=== PATIENT | female | born 1980 | race Caucasian/White ===

== ENCOUNTER 2016-12-14 13:49 | Emergency (ER) | payer BC, OTHER ==
[2016-12-14 13:55] VITALS: BP 160/68; BMI 54.0
--- NOTE | 2016-12-14 14:10 | DR.GENAD ---
HPI - PCP Primary Care Physician: brian - Complaint/Symptoms Chief Complaint Doctors Comments: Patient admits to generalized abdominal pain since this morning. Admits to nausea, chills and no fever. Chief Complaint:: pt says " I have had chills and n/v since this moring" - Source History Provided: Patient - Mode of Arrival Mode of Arrival: Ambulatory - Timing Onset of Chief Complaint: 12/14/16 PMH - PMH Past Medical History: No Past Surgical History: Yes Surgical History: , Cholecystectomy - Family History History of Family Medical Conditions: Yes Family Medical History: Hypertension - Social History Does patient currently use any type of tobacco product: No Have you used tobacco products in the last 12 months: No Type of Tobacco Use: None Does any household member use tobacco: No Alcohol Use: None Do you use any recreational Drugs:: No Lives With: Family Lives Where: Home - infectious screening In the last 2 months have you had wt loss of >10#?: NO Have you had fever, night sweats or hemotysis?: No Have you traveled outside the country in the last 6 months?: No Isolation: Standard ROS - Review of Systems Constitutional: Chills Eyes: No Symptoms Reported ENTM: No Symptoms Reported Respiratoy: No Symptoms Reported Cardiovascular: No Symptoms Reported Gastrointestinal/Abdominal: Abdominal Pain, Nausea Genitourinary: No Symptoms Reported Neurological: No Symptoms Reported Musculoskeletal: No Symptoms Reported Integumentary: No Symptoms Reported Hematologic/Lymphatic: No Symptoms Reported Endocrine: No Symptoms Reported Psychiatric: No Symptoms Reported All Other Systems: Reviewed and Negative PE - Vital Signs Vitals: Temperature 99 F Pulse Rate 106 Respiratory Rate 18 Blood Pressure [Right Arm] 119/66 Blood Pressure 160/68 O2 Sat by Pulse Oximetry 98 - General Limitations: No Limitations General Appearance: Alert, In No Apparent Distress - Head Head Exam: Normal Inspection, Atraumatic - Eyes Eye exam: Normal Appearance, PERRL, EOMI - ENT ENT Exam: Normal Exam External Ear Exam: Normal External Inspection TM/Canal Exam: Bilateral Normal Nose Exam: Normal Nose Exam Mouth Exam: Normal Inspection Throat Exam: Normal Inspection - Neck Neck Exam: Normal Inspection, Full ROM - Chest Chest Inspection: Normal Inspection, Symmetric Chest Wall Rise - Respiratory Respiratory Exam: Normal Lung Sounds Bilat Respiratory Exam: Bilateral Clear to Auscultation - Cardiovascular Cardiovascular Exam: Regular Rate, Normal Rhythm - Abdominal Exam Abdominal Exam: Normal Inspection, Tenderness (generalized), Hypoactive Bowel Sounds Abdominal Tenderness: Diffuse - Extremities Extremities Exam: Normal Inspection, Full ROM - Back Back Exam: Normal Inspection - Neurologic Neurological Exam: Alert, Oriented X3, CN II-XII Intact - Psychiatric Psychiatric Exam: Normal Affect - Skin Skin Exam: Warm, Dry, Intact ROR - Labs Reviewed Laboratory Results Reviewed?: Yes (H pylori positive) Result Diagrams: 12/14/16 14:21 12/14/16 14:21 Laboratory: WBC 10.6 X10^3/uL (3.6-10.0) H 12/14/16 14:21 RBC 4.79 X10^6/uL (3.5-5.4) 12/14/16 14:21 Hgb 13.3 g/dL (12.0-16.0) 12/14/16 14:21 Hct 40.3 % (36.0-47.0) 12/14/16 14:21 MCV 84.3 fL (80.0-100.0) 12/14/16 14:21 MCH 27.7 pg (27.0-34.0) 12/14/16 14:21 MCHC 32.9 g/dL (33.0-35.0) L 12/14/16 14:21 RDW 14.9 % (11.6-16.5) 12/14/16 14:21 Plt Count 166 X10^3/uL (150.0-450.0) 12/14/16 14:21 MPV 9.0 fL (7.4-11.0) 12/14/16 14:21 Neut % 86.6 % (42.0-75.0) H 12/14/16 14:21 Lymph % 6.5 % (21.0-51.0) L 12/14/16 14:21 [place] % 5.9 % (0.0-13.0) 12/14/16 14:21 Eos % 0.7 % (0.9-2.9) L 12/14/16 14:21 Baso % 0.3 % (0.2-1.0) 12/14/16 14:21 Neut # 9.2 x10^3/uL (2.2-4.8) H 12/14/16 14:21 Lymph # 0.7 X10^3/uL (1.3-2.9) L 12/14/16 14:21 [place] # 0.6 x10^3/uL (0.3-0.8) 12/14/16 14:21 Eos # 0.1 x10^3/uL (0.0-0.2) 12/14/16 14:21 Baso # 0.0 X10^3/uL (0.0-0.1) 12/14/16 14:21 Absolute Nucleated RBC 0.0 /100WBC 12/14/16 14:21 Sodium 141 mmol/L (136-145) 12/14/16 14:21 Corrected Sodium 141 mmol/L (136-145) 12/14/16 14:21 Potassium 3.5 mmol/L (3.5-5.1) 12/14/16 14:21 Chloride 105 mmol/L (98-107) 12/14/16 14:21 Carbon Dioxide 26.8 mmol/L (21-32) 12/14/16 14:21 BUN 8 mg/dL (7-18) 12/14/16 14:21 Creatinine 0.78 mg/dL (0.55-1.02) 12/14/16 14:21 Est GFR (MDRD) Af Amer > 60 (>60) 12/14/16 14:21 Est GFR (MDRD) Non-Af > 60 (>60) 12/14/16 14:21 Glucose 114 mg/dL (65-99) H 12/14/16 14:21 Calcium 8.4 mg/dL (8.5-10.1) L 12/14/16 14:21 Corrected Calcium 9.2 mg/dL (8.5-10.1) 12/14/16 14:21 Total Bilirubin 0.60 mg/dL (0.2-1.0) 12/14/16 14:21 AST 15 Units/L (15-37) 12/14/16 14:21 ALT 23 Units/L (12-78) 12/14/16 14:21 Alkaline Phosphatase 73 Units/L (46-116) 12/14/16 14:21 C-Reactive Protein 52.50 mg/L (0-3.0) H 12/14/16 14:21 Total Protein 6.7 g/dL (6.4-8.2) 12/14/16 14:21 Albumin 3.0 g/dL (3.4-5.0) L 12/14/16 14:21 Globulin 3.7 g/dL (2.5-4.5) 12/14/16 14:21 Albumin/Globulin Ratio 0.8 Ratio (1.1-2.1) L 12/14/16 14:21 Amylase 30 Units/L (25-115) 12/14/16 14:21 Lipase 101 Units/L (73-393) 12/14/16 14:21 Specimen Type Clean catch urine 12/14/16 14:40 Urine Color Yellow (YELLOW) 12/14/16 14:40 Urine Appearance Hazy (CLEAR) 12/14/16 14:40 Urine pH 7.0 (5.0 - 8.0) 12/14/16 14:40 Ur Specific [place] 1.005 (1.000-1.030) 12/14/16 14:40 Urine Protein 1+ (NEGATIVE) 12/14/16 14:40 Urine Glucose (UA) Negative (NEGATIVE) 12/14/16 14:40 Urine Ketones Negative (NEGATIVE) 12/14/16 14:40 Urine Occult Blood Negative (NEGATIVE) 12/14/16 14:40 Urine Nitrite Negative (NEGATIVE) 12/14/16 14:40 Urine Bilirubin Negative (NEGATIVE) 12/14/16 14:40 Urine Urobilinogen Normal (NORMAL) 12/14/16 14:40 Ur Leukocyte Esterase 1+ (NEGATIVE) 12/14/16 14:40 Urine RBC 0-2 /HPF (NEGATIVE) 12/14/16 14:40 Urine WBC 0-2 /HPF (NEGATIVE) 12/14/16 14:40 Ur Squamous Epith Cells Few /HPF (NEGATIVE) 12/14/16 14:40 Urine Bacteria 1+ /HPF (NEGATIVE) 12/14/16 14:40 Ur Culture Indicated? No/not indicated 12/14/16 14:40 H. pylori IgG Antibody Positive (NEGATIVE) A 12/14/16 14:21 - Diagnosis Discharge Problem: Helicobacter pylori gastritis - Discharge Plan Condition: Stable - Follow ups/Referrals Follow ups/Referrals: Rio Bailey [Primary Care Provider] - 3 days - Instructions
[2016-12-14] MEDS ORDERED: MORPHINE SULFATE INJ 4 MG IVP ONE (14:13)
[2016-12-14] MEDS ORDERED: ZOFRAN INJ 4 MG VIAL IVP ONE (14:14)
[2016-12-14 14:27] LABS: BASOPHILS % (AUTO) 0.3 % (0.2-1.0); EOSINOPHILS # (AUTO) 0.1 x10^3/uL (0.0-0.2); EOSINOPHILS % (AUTO) 0.7 % (0.9-2.9); HEMATOCRIT 40.3 % (36.0-47.0); HEMOGLOBIN 13.3 g/dL (12.0-16.0); LYMPHOCYTES # (AUTO) 0.7 X10^3/uL (1.3-2.9); LYMPHOCYTES % (AUTO) 6.5 % (21.0-51.0); MEAN CORPUSCULAR HEMOGLOBIN 27.7 pg (27.0-34.0); MEAN CORPUSCULAR HGB CONC 32.9 g/dL (33.0-35.0); MEAN CORPUSCULAR VOLUME 84.3 fL (80.0-100.0); MONOCYTES # (AUTO) 0.6 x10^3/uL (0.3-0.8); MONOCYTES % (AUTO) 5.9 % (0.0-13.0); NEUTROPHILS # (AUTO) 9.2 x10^3/uL (2.2-4.8); NEUTROPHILS % (AUTO) 86.6 % (42.0-75.0); PLATELET COUNT 166 X10^3/uL (150.0-450.0); RED BLOOD COUNT 4.79 X10^6/uL (3.5-5.4); RED CELL DISTRIBUTION WIDTH 14.9 % (11.6-16.5); WHITE BLOOD COUNT 10.6 X10^3/uL (3.6-10.0)
[2016-12-14] MEDS ORDERED: ZOFRAN INJ 4 MG VIAL ONE (14:32)
[2016-12-14] MEDS ORDERED: MORPHINE SULFATE INJ 4 MG ONE (14:32)
[2016-12-14 14:44] LABS: ALANINE AMINOTRANSFERASE 23 Units/L (12-78); ALKALINE PHOSPHATASE 73 Units/L (46-116); AMYLASE 30 Units/L (25-115); ASPARTATE AMINO TRANSFERASE 15 Units/L (15-37); BLOOD UREA NITROGEN 8 mg/dL (7-18); CALCIUM 8.4 mg/dL (8.5-10.1); CARBON DIOXIDE 26.8 mmol/L (21-32); CHLORIDE 105 mmol/L (98-107); COR CA(FOR HYPOALB) 9.2 mg/dL (8.5-10.1); COR NA(FOR HYPERGLY) 141 mmol/L (136-145); CREATININE 0.78 mg/dL (0.55-1.02); GLUCOSE 114 mg/dL (65-99); LIPASE 101 Units/L (73-393); SODIUM 141 mmol/L (136-145); TOTAL PROTEIN 6.7 g/dL (6.4-8.2); eGFR BLACK RACES > 60 (>60); eGFR NON BLACK RACES > 60 (>60)
[2016-12-14 14:48] LABS: BILIRUBIN,URINE NEGATIVE (NEGATIVE); BLOOD/HEMOGLOBIN,URINE NEGATIVE (NEGATIVE); GLUCOSE, URINE NEGATIVE (NEGATIVE); KETONES,URINE NEGATIVE (NEGATIVE); LEUKOCYTE ESTERASE ,URINE 1+ (NEGATIVE); NITRITES,URINE NEGATIVE (NEGATIVE); PROTEIN,URINE 1+ (NEGATIVE); UROBILINOGEN,URINE NORMAL (NORMAL)
[2016-12-14 14:54] LABS: APPEARANCE,URINE HAZY (CLEAR); BACTERIA,URINE 1+ /HPF (NEGATIVE); COLOR,URINE YELLOW (YELLOW); RBC,URINE 0-2 /HPF (NEGATIVE); SQUAMOUS EPITHELIAL CELL,UR FEW /HPF (NEGATIVE)
== END 2016-12-14 16:03 | disposition home or self-care (01) ==
LOC: ER 13:57
DX: R11.2 Nausea with vomiting, unspecified (principal); B96.81 Helicobacter pylori [H. pylori] as the cause of diseases classified elsewhere
CPT/HCPCS: 36415; 80053; 81001; 82150; 83690; 85025; 86140; 86677; 96365; 96374; 96375; 99283; A4222; J2270; J2405

== ENCOUNTER 2018-01-12 10:33 | Inpatient (IN) ==
[2018-01-12] MEDS: NS 1000 ML 1,000 ML IV SCH ×2 (11:34→20:19)
[2018-01-12 11:50] LABS: BASOPHILS # (AUTO) 0.1 X10^3/uL (0.0-0.1); BASOPHILS % (AUTO) 0.8 % (0.2-1.0); EOSINOPHILS # (AUTO) 0.2 x10^3/uL (0.0-0.2); EOSINOPHILS % (AUTO) 2.1 % (0.9-2.9); HEMATOCRIT 38.2 % (36.0-47.0); HEMOGLOBIN 12.9 g/dL (12.0-16.0); LYMPHOCYTES # (AUTO) 1.6 X10^3/uL (1.3-2.9); LYMPHOCYTES % (AUTO) 17.4 % (21.0-51.0); MEAN CORPUSCULAR HEMOGLOBIN 28.9 pg (27.0-34.0); MEAN CORPUSCULAR HGB CONC 33.9 g/dL (33.0-35.0); MEAN CORPUSCULAR VOLUME 85.2 fL (80.0-100.0); MEAN PLATELET VOLUME 9.7 fL (7.4-11.0); MONOCYTES # (AUTO) 0.5 x10^3/uL (0.3-0.8); MONOCYTES % (AUTO) 5.6 % (0.0-13.0); NEUTROPHILS # (AUTO) 6.7 x10^3/uL (2.2-4.8); NEUTROPHILS % (AUTO) 74.1 % (42.0-75.0); PLATELET COUNT 214 X10^3/uL (150.0-450.0); RED BLOOD COUNT 4.49 X10^6/uL (3.5-5.4); RED CELL DISTRIBUTION WIDTH 14.8 % (11.6-16.5); WHITE BLOOD COUNT 9.1 X10^3/uL (3.6-10.0)
[2018-01-12 12:11] VITALS: BMI 50.7
[2018-01-12 12:37] LABS: BILIRUBIN,URINE NEGATIVE (NEGATIVE); BLOOD/HEMOGLOBIN,URINE 1+ (NEGATIVE); GLUCOSE, URINE NEGATIVE (NEGATIVE); KETONES,URINE 3+ (NEGATIVE); LEUKOCYTE ESTERASE ,URINE 2+ (NEGATIVE); NITRITES,URINE NEGATIVE (NEGATIVE); PH,URINE 6.5 (5.0 - 8.0); PROTEIN,URINE 1+ (NEGATIVE); UROBILINOGEN,URINE NORMAL (NORMAL)
[2018-01-12 12:37] LABS: ALANINE AMINOTRANSFERASE 54 Units/L (12-78); ALBUMIN 3.3 g/dL (3.4-5.0); ALKALINE PHOSPHATASE 79 Units/L (46-116); ASPARTATE AMINO TRANSFERASE 33 Units/L (15-37); BLOOD UREA NITROGEN 6 mg/dL (7-18); CALCIUM 8.9 mg/dL (8.5-10.1); CARBON DIOXIDE 23.8 mmol/L (21-32); CHLORIDE 103 mmol/L (98-107); COR CA(FOR HYPOALB) 9.5 mg/dL (8.5-10.1); CREATININE 0.74 mg/dL (0.55-1.02); SODIUM 139 mmol/L (136-145); TOTAL PROTEIN 7.4 g/dL (6.4-8.2); eGFR NON BLACK RACES > 60 (>60)
[2018-01-12 12:40] LABS: APPEARANCE,URINE HAZY (CLEAR); COLOR,URINE YELLOW (YELLOW)
[2018-01-12 12:43] LABS: BACTERIA,URINE NEGATIVE /HPF (NEGATIVE); RBC,URINE 0-2 /HPF (NONE SEEN); SQUAMOUS EPITHELIAL CELL,UR MANY /HPF (NEGATIVE)
[2018-01-12] MEDS: ZOFRAN INJ 4 MG VIAL IVP PRN (12:43)
[2018-01-12] MEDS: TORADOL 30 MG VIAL IVP SCH ×2 (12:43→17:50)
[2018-01-12] MEDS ORDERED: NS 100 ML IV 100 ML IV ONE (14:31)
--- NOTE | 2018-01-12 15:55 | CT ---
HISTORY: Headache Study: CT brain without contrast Comparison: None Technique: Multiple axial images of the brain were obtained from the skull base to the vertex without administra tion of IV contrast. Findings: No acute intraparenchymal hemorrhage or mass can be identified. No extra-axial fluid collections are seen. No alteration in the attenuation of the brain parenchyma can be identified to suggest acute o r subacute ischemic change. The ventricular system is symmetric and nondilated. If symptoms or clin ical concern persist recommend follow-up further evaluation. IMPRESSION: 1. No acute intracranial process can be identified. Reported By:
--- NOTE | 2018-01-12 17:21 | CT ---
CT OF THE ABDOMEN AND PELVIS WITH CONTRAST HISTORY: Nausea and vomiting Comparison: None Technique: Multiple axial images of the abdomen and pelvis were obtained from the lung bases to the pubic symphy sis follow the administration of IV contrast as well as oral contrast. Dose reduction techniques inc luding Automated Exposure Control (AEC) and adjustment of mA and kV were utlized. Findings: The heart is normal in size. There is no pericardial effusion. Lung bases are clear without focal con solidation, pleural effusion or pneumothorax. Liver and spleen are normal in size, enhancement characteristics and contour. No focal lesions. The p ortal vein is patent. No ductal dilitation. Gallbladder not seen. Recent gastric sleeve procedure. Th e pancreas is unremarkable. Adrenal glands are normal. Kidneys enhance symmetrically without hydronep hrosis or nephrolithiasis. No bowel obstruction or inflammation. No abnormal appearing mesenteric or retroperitoneal lymph node s. No free fluid or fluid collections. The bladder is normal in appearance. Uterus present. No free fluid or abnormal pelvic lymph nodes. No aggressive osseous lesions. IMPRESSION: 1. No source of patient's nausea or vomiting is identified on this examination. Reported By:
[2018-01-12] MEDS: SYNTHROID 75 mcg TAB PO SCH (20:19)
[2018-01-13] MEDS: TORADOL 30 MG VIAL IVP SCH ×4 (00:20→18:26)
[2018-01-13] MEDS: NS 1000 ML 1,000 ML IV SCH ×3 (00:20→15:51)
[2018-01-13 06:04] LABS: BASOPHILS # (AUTO) 0.1 X10^3/uL (0.0-0.1); BASOPHILS % (AUTO) 1.1 % (0.2-1.0); EOSINOPHILS # (AUTO) 0.3 x10^3/uL (0.0-0.2); EOSINOPHILS % (AUTO) 4.5 % (0.9-2.9); HEMATOCRIT 34.6 % (36.0-47.0); HEMOGLOBIN 11.9 g/dL (12.0-16.0); LYMPHOCYTES # (AUTO) 1.9 X10^3/uL (1.3-2.9); LYMPHOCYTES % (AUTO) 31.1 % (21.0-51.0); MEAN CORPUSCULAR HEMOGLOBIN 29.4 pg (27.0-34.0); MEAN CORPUSCULAR HGB CONC 34.3 g/dL (33.0-35.0); MEAN CORPUSCULAR VOLUME 85.8 fL (80.0-100.0); MEAN PLATELET VOLUME 9.8 fL (7.4-11.0); MONOCYTES # (AUTO) 0.5 x10^3/uL (0.3-0.8); NEUTROPHILS # (AUTO) 3.4 x10^3/uL (2.2-4.8); NEUTROPHILS % (AUTO) 55.3 % (42.0-75.0); PLATELET COUNT 161 X10^3/uL (150.0-450.0); RED BLOOD COUNT 4.04 X10^6/uL (3.5-5.4); RED CELL DISTRIBUTION WIDTH 15.1 % (11.6-16.5); WHITE BLOOD COUNT 6.2 X10^3/uL (3.6-10.0)
[2018-01-13 06:21] LABS: ALANINE AMINOTRANSFERASE 43 Units/L (12-78); ALBUMIN 2.7 g/dL (3.4-5.0); ALKALINE PHOSPHATASE 70 Units/L (46-116); ASPARTATE AMINO TRANSFERASE 27 Units/L (15-37); BLOOD UREA NITROGEN 5 mg/dL (7-18); CALCIUM 8.3 mg/dL (8.5-10.1); CARBON DIOXIDE 23.7 mmol/L (21-32); CHLORIDE 106 mmol/L (98-107); COR CA(FOR HYPOALB) 9.3 mg/dL (8.5-10.1); CREATININE 0.68 mg/dL (0.55-1.02); SODIUM 142 mmol/L (136-145); TOTAL PROTEIN 6.2 g/dL (6.4-8.2); eGFR NON BLACK RACES > 60 (>60)
[2018-01-13] MEDS: ROCEPHIN 1 GRAM IV PREMIX 1 G/50 ML IV.SOLN. IV SCH ×2 (10:57→11:44)
[2018-01-13] MEDS: SYNTHROID 75 mcg TAB PO SCH (10:57)
[2018-01-13] MEDS: PATIENT'S HOME MEDICATION (Norethindrone-E.Estradiol-Iron [Norethindrone-E.Estradiol-Iron] PO SCH (11:04)
[2018-01-13] MEDS: ZOFRAN INJ 4 MG VIAL IVP PRN (12:57)
--- NOTE | 2018-01-13 20:57 | DR.UPDATE ---
H&P Update History and Physical Update: WAS SEEN IN THE OFFICE TODAY. A H&P WAS COMPLETED PRIOR TO ADMISSION. PATIENT HAS BEEN SEEN AND EXAMINED WITH NO CHANGES NOTED TO H&P. Changes noted: NO Yes with the following:
--- NOTE | 2018-01-13 21:13 | PCM.PROG ---
Progress Note - Progress Note for Day of Date of Exam: 01/13/18 - Subjective Subjective: WAS ADMITTED YESTERDAY FOR DEHYDRATION, INTRACTABLE NAUSEA , VOMITING, AND HEADACHE. TODAY, SHE IS LYING IN BED WITH EYES OPEN ON MORNING ROUNDS. SHE IS ILL APPEARING AND COMPLAINS OF NAUSEA AND SEVERE HEADACHE. SHE ALSO CONTINUES WITH FATIGUE AND GENERALIZED WEAKNESS TODAY. AN EMESIS BAG AT BEDSIDE IS NOTED WITH BILIOUS EMESIS. ON EXAMINATION, HEART IS REGULAR IN RATE AND RHYTHM. BILATERAL LUNGS ARE NOTED WITH DIMINISHED LUNG SOUNDS THROUGHOUT. ABDOMEN IS ROUND, SOFT, AND NOTED WITH MODERATE, DIFFUSE TENDERNESS TO PALPATION. HYPERACTIVE BOWEL SOUNDS ARE NOTED IN ALL QUADRANTS. DECREASED SKIN TURGOR NOTED. PATIENT REPORTS THAT SHE HAS BEEN UNABLE TO HOLD ANY FOOD OR LIQUID DOWN AT HOME. HER VITALS TODAY ARE 98.3-65-18-97%-117/70. LABS WERE OBTAINED TODAY. ABNORMAL LAB VALUES INCLUDE THE FOLLOWING: HGB 11.9, HCT 34.6, POTASSIUM 3.3, BUN 5, CALCIUM 8.3, TOTAL PROTEIN 6.2, ALBUMIN 2.7. URINALYSIS ON ADMISSION REVEALED WBC 3-5, RBC 0-2, LEUKOCYTES 2+, BACTERIA NEGATIVE. TODAY , WE WILL START ROCEPHIN 1GM IV DAILY FOR UTI. OTHERWISE, WE WILL CONTINUE WITH IV FLUIDS, TORADOL FOR HEADACHE, AND NAUSEA MEDICATIONS. OTHERWISE, WE PLAN TO FOLLOW UP WITH AM LABS AND CONTINUE TO MONITOR PATIENT. - Past Medical Family Social History Past Med/Fam/Surg Hx: No changes since H&P Allergies: Allergies No Known Drug Allergies Allergy (Verified 01/06/18 14:50) - Review of Systems ROS: No change since H&P - Vital Signs and I&O's Vital Signs: Temperature 98.3 F Pulse Rate [Right Radial] 69 Respiratory Rate 20 Blood Pressure [Right Arm] 129/71 Blood Pressure 165/76 O2 Sat by Pulse Oximetry 98 Intake and Output: Intake & Output 01/11/18 01/12/18 01/13/18 01/14/18 11:59 11:59 11:59 11:59 Intake Total 3882 / 3882 1609 / 1609 Output Total Balance 3881 / 3881 1609 / 1609 - Physical Exam Oriented: Normal Eyes: Normal Ear: Normal Nose: Normal Throat: Normal Respiratory: Generalized Auscultation: Bowel Sounds: Increased Palpation: Normal Tenderness: Diffuse, Moderate. negative: Rebound, Guarding, Rigidity Skin: Decreased [place] Musculoskeletal: Normal Psychiatric: Normal Mood Description: Calm Affect: Normal Speech Pattern: Clear, Appropriate - Laboratory and Diagnostics Result Diagrams: 01/13/18 05:31 01/13/18 05:31 Labs: Laboratory WBC 6.2 X10^3/uL (3.6-10.0) 01/13/18 05:31 RBC 4.04 X10^6/uL (3.5-5.4) 01/13/18 05:31 Hgb 11.9 g/dL (12.0-16.0) L 01/13/18 05:31 Hct 34.6 % (36.0-47.0) L 01/13/18 05:31 MCV 85.8 fL (80.0-100.0) 01/13/18 05:31 MCH 29.4 pg (27.0-34.0) 01/13/18 05:31 MCHC 34.3 g/dL (33.0-35.0) 01/13/18 05:31 RDW 15.1 % (11.6-16.5) 01/13/18 05:31 Plt Count 161 X10^3/uL (150.0-450.0) 01/13/18 05:31 MPV 9.8 fL (7.4-11.0) 01/13/18 05:31 Neut % (Auto) 55.3 % (42.0-75.0) 01/13/18 05:31 Lymph % (Auto) 31.1 % (21.0-51.0) 01/13/18 05:31 [place] % (Auto) 8.0 % (0.0-13.0) 01/13/18 05:31 Eos % (Auto) 4.5 % (0.9-2.9) H 01/13/18 05:31 Baso % (Auto) 1.1 % (0.2-1.0) H 01/13/18 05:31 Neut # (Auto) 3.4 x10^3/uL (2.2-4.8) 01/13/18 05:31 Lymph # (Auto) 1.9 X10^3/uL (1.3-2.9) 01/13/18 05:31 [place] # (Auto) 0.5 x10^3/uL (0.3-0.8) 01/13/18 05:31 Eos # (Auto) 0.3 x10^3/uL (0.0-0.2) H 01/13/18 05:31 Baso # (Auto) 0.1 X10^3/uL (0.0-0.1) 01/13/18 05:31 Absolute Nucleated RBC 0.1 /100WBC 01/13/18 05:31 Sodium 142 mmol/L (136-145) 01/13/18 05:31 Corrected Sodium TNP 01/13/18 05:31 Potassium 3.3 mmol/L (3.5-5.1) L 01/13/18 05:31 Chloride 106 mmol/L (98-107) 01/13/18 05:31 Carbon Dioxide 23.7 mmol/L (21-32) 01/13/18 05:31 BUN 5 mg/dL (7-18) L 01/13/18 05:31 Creatinine 0.68 mg/dL (0.55-1.02) 01/13/18 05:31 Est GFR (MDRD) Af Amer > 60 (>60) 01/13/18 05:31 Est GFR (MDRD) Non-Af > 60 (>60) 01/13/18 05:31 Glucose 68 mg/dL (65-99) 01/13/18 05:31 Calcium 8.3 mg/dL (8.5-10.1) L 01/13/18 05:31 Corrected Calcium 9.3 mg/dL (8.5-10.1) 01/13/18 05:31 Total Bilirubin 0.50 mg/dL (0.2-1.0) 01/13/18 05:31 AST 27 Units/L (15-37) 01/13/18 05:31 ALT 43 Units/L (12-78) 01/13/18 05:31 Alkaline Phosphatase 70 Units/L (46-116) 01/13/18 05:31 Total Protein 6.2 g/dL (6.4-8.2) L 01/13/18 05:31 Albumin 2.7 g/dL (3.4-5.0) L 01/13/18 05:31 Globulin 3.5 g/dL (2.5-4.5) 01/13/18 05:31 Albumin/Globulin Ratio 0.8 Ratio (1.1-2.1) L 01/13/18 05:31 Specimen Type Clean catch urine 01/12/18 11:45 Urine Color Yellow (YELLOW) 01/12/18 11:45 Urine Appearance Hazy (CLEAR) 01/12/18 11:45 Urine pH 6.5 (5.0 - 8.0) 01/12/18 11:45 Ur Specific [place] 1.005 (1.000-1.030) 01/12/18 11:45 Urine Protein 1+ (NEGATIVE) 01/12/18 11:45 Urine Glucose (UA) Negative (NEGATIVE) 01/12/18 11:45 Urine Ketones 3+ (NEGATIVE) 01/12/18 11:45 Urine Occult Blood 1+ (NEGATIVE) 01/12/18 11:45 Urine Nitrite Negative (NEGATIVE) 01/12/18 11:45 Urine Bilirubin Negative (NEGATIVE) 01/12/18 11:45 Urine Urobilinogen Normal (NORMAL) 01/12/18 11:45 Ur Leukocyte Esterase 2+ (NEGATIVE) 01/12/18 11:45 Urine RBC 0-2 /HPF (NONE SEEN) 01/12/18 11:45 Urine WBC 3-5 /HPF (NONE SEEN) 01/12/18 11:45 Ur Squamous Epith Cells Many /HPF (NEGATIVE) 01/12/18 11:45 Urine Bacteria Negative /HPF (NEGATIVE) 01/12/18 11:45 Ur Culture Indicated? No/not indicated 01/12/18 11:45 - Plan (1) Dehydration Status: Acute Plan: CONTINUE IV FLUIDS, NAUSEA MEDICATIONS, CONTINUE TO MONITOR (2) Intractable nausea and vomiting Status: Acute Qualifiers: Vomiting type: unspecified Qualified Code(s): R11.2 - Nausea with vomiting , unspecified Plan: CONTINUE ZOFRAN, CONTINUE TO MONITOR (3) Urinary tract infection Status: Acute Qualifiers: Urinary tract infection type: acute cystitis Hematuria presence: without hematuria Qualified Code(s): N30.00 - Acute cystitis without hematuria Plan: ROCEPHIN 1GM IV DAILY, CONTINUE TO MONITOR
[2018-01-13] MEDS ORDERED: MAALOX or MYLANTA PO PRN (21:53)
[2018-01-14] MEDS: TORADOL 30 MG VIAL IVP SCH ×3 (04:18→12:25)
[2018-01-14] MEDS: NS 1000 ML 1,000 ML IV SCH ×2 (04:18→09:42)
[2018-01-14 05:21] LABS: BASOPHILS # (AUTO) 0.1 X10^3/uL (0.0-0.1); BASOPHILS % (AUTO) 0.9 % (0.2-1.0); EOSINOPHILS # (AUTO) 0.2 x10^3/uL (0.0-0.2); EOSINOPHILS % (AUTO) 3.3 % (0.9-2.9); HEMATOCRIT 34.3 % (36.0-47.0); HEMOGLOBIN 11.8 g/dL (12.0-16.0); LYMPHOCYTES # (AUTO) 2.1 X10^3/uL (1.3-2.9); MEAN CORPUSCULAR HEMOGLOBIN 29.5 pg (27.0-34.0); MEAN CORPUSCULAR HGB CONC 34.5 g/dL (33.0-35.0); MEAN CORPUSCULAR VOLUME 85.6 fL (80.0-100.0); MEAN PLATELET VOLUME 10.2 fL (7.4-11.0); MONOCYTES # (AUTO) 0.5 x10^3/uL (0.3-0.8); MONOCYTES % (AUTO) 7.7 % (0.0-13.0); NEUTROPHILS # (AUTO) 4.2 x10^3/uL (2.2-4.8); NEUTROPHILS % (AUTO) 58.1 % (42.0-75.0); PLATELET COUNT 166 X10^3/uL (150.0-450.0); RED CELL DISTRIBUTION WIDTH 14.8 % (11.6-16.5); WHITE BLOOD COUNT 7.2 X10^3/uL (3.6-10.0)
[2018-01-14 05:40] LABS: ALANINE AMINOTRANSFERASE 42 Units/L (12-78); ALBUMIN 2.6 g/dL (3.4-5.0); ALKALINE PHOSPHATASE 70 Units/L (46-116); ASPARTATE AMINO TRANSFERASE 26 Units/L (15-37); BLOOD UREA NITROGEN 2 mg/dL (7-18); CALCIUM 8.1 mg/dL (8.5-10.1); CARBON DIOXIDE 25.4 mmol/L (21-32); CHLORIDE 107 mmol/L (98-107); COR CA(FOR HYPOALB) 9.2 mg/dL (8.5-10.1); CREATININE 0.66 mg/dL (0.55-1.02); SODIUM 142 mmol/L (136-145); TOTAL PROTEIN 5.9 g/dL (6.4-8.2); eGFR NON BLACK RACES > 60 (>60)
[2018-01-14] MEDS ORDERED: ROCEPHIN VIAL 1 GRAM 1 G in NS 100 ML IV + SPIKE MINIBAG* 100 ML IV SCH (09:00)
[2018-01-14 09:01] VITALS: BP 141/75
[2018-01-14] MEDS: SYNTHROID 75 mcg TAB PO SCH (09:27)
[2018-01-14] MEDS: PATIENT'S HOME MEDICATION (Norethindrone-E.Estradiol-Iron [Norethindrone-E.Estradiol-Iron] PO SCH (09:29)
[2018-01-14] MEDS: ZOFRAN INJ 4 MG VIAL IVP PRN (09:43)
--- NOTE | 2018-02-07 14:36 | DR.CARTERD ---
- Discharge Summary for: Discharge Summary for Date of:: 01/14/18 - Admission Date Date of Admission: 01/12/18 - Admission Diagnoses Admission Diagnosis: (1) Dehydration (2) Intractable nausea and vomiting (3) Urinary tract infection - Discharge Date Discharge Date: 01/14/18 - Discharge Diagnoses Discharge Diagnosis: (1) Dehydration (2) Intractable nausea and vomiting (3) Urinary tract infection - Hospital Course Hospital Course: Day one, Ms. Galicia presented to the hospital as a direct admission with reports of nausea and severe headache. Patient reported she recently underwent a gastric sleeve surgery in [place] on 12/28/17. Reported symptoms included fatigue, weakness, and nausea. Patient reported she had been taking Zofran and Emetrol constantly without relief in nausea and vomiting. Patient reported that she had been unable to hold any food or liquid down at home. Patient noted with epigastric tenderness on palpation of all quadrants. Patient admitted to the hospital and started on IV fluids for rehydration and IV pain medication scheduled for severe headache. Medical History: Depression. Surgical History: Gastric Sleeve (12/28/17). Medications: Zofran 4mg IV Q8hr PRN, NS @125ml/hr, Toradol 30mg IV Q6hr, Synthroid 75mcg po daily. Abnormal Labs: Lymph% 17.4, Neut# 6.7, BUN 6, Albumin 3.3, A/G Ratio 0.8. Urinalysis: Hazy, Protein 1+, Ketones 3+, Occult Blood 1+, Leuk Est 2+, RBC 0-2, WBC 3-5. Abdomen/Pelvis CT: Recent gastric sleeve procedure. No source of patient's nausea or vomiting is identified on this examination. Brain CT: No acute intracranial process can be identified. Day two, Ms. Galicia was admitted for dehydration, intractable nausea, vomiting, and headache. She was lying in bed with eyes open on morning rounds. She was ill appearing and complained of nausea and severe headache. She also continued with fatigue and generalized weakness. An emesis bag at bedside was noted with bilious emesis. On examination, heart was regular in rate and rhythm. Bilateral lungs were noted with diminished lung sounds throughout. Abdomen was round, soft, and noted with moderate, diffuse tenderness to palpation. Hyperactive bowel sounds were noted in all quadrants. Decreased skin turgor noted. Patient reported that she had been unable to hold any food or liquid down at home. We started Rocephin 1gm IV daily for UTI. We continued with IV fluids, Toradol for headache, and nausea medications. Abnormal Labs: Hgb 11.9, Hct 34.6, Eos% 4.5, Baso% 1.1, Eos# 0.3, Potassium 3.3, BUN 5, Calcium 8.3, Total Protein 6.2, Albumin 2.7, A/G Ratio 0.8. Day three, patient reported she was feeling better. She reported significant improvement in nausea and vomiting. She denied abdominal pain. Patient reported improvement in headache. Patient was able to hold down clear liquids without nausea or vomiting. Vital signs stable. Labs wnl. We planned for discharge. Instructions for medications and follow up were discussed with patient and family, both voiced understanding. Patient discharged home in stable condition with family. - Discharge Medications Discharge Medications: Home Medication List levothyroxine [Levo-T] 1 tab PO DAILY 01/12/18 [History] norethindrone-e.estradiol-iron 1 tab PO DAILY 01/12/18 [History] ondansetron [Zofran ODT] 1 tab TRANSLINGUAL Q6H PRN 01/12/18 [History] cefdinir 300 mg PO BID #20 cap 01/14/18 [Rx] promethazine 25 mg PO Q6H PRN #20 tab 01/14/18 [Rx] Prescriptions: cefdinir Rio Bailey promethazine Rio Bailey - Discharge Disposition Discharge Disposition: Patient is to follow up in our office in one week.
== END 2018-01-14 12:30 | disposition home or self-care (01) | DRG 641 ==
LOC: OBS 10:59
PROVIDERS: ADMIT Internal Medicine; ATTEND Internal Medicine
DX: R51 Headache; E66.01 Morbid (severe) obesity due to excess calories; R53.83 Other fatigue; E03.8 Other specified hypothyroidism; R11.2 Nausea with vomiting, unspecified; E86.0 Dehydration; I10 Essential (primary) hypertension; N30.00 Acute cystitis without hematuria; Z98.84 Bariatric surgery status
CPT/HCPCS: 36415; 70450; 74177; 80053; 81001; 85025; A4222; J0696; J1885; J2405; J7030; J7050